=== PATIENT | male | born 1995 | race Caucasian/White ===

== ENCOUNTER 2021-09-03 13:27 | Emergency (ER) | payer OTHER ==
[2021-09-03 14:27] LABS: HEMOGLOBIN 14.5 gm/dl (14.0-17.5); RED BLOOD COUNT 5.14 M/UL (4.20-5.50); WHITE BLOOD COUNT 7.6 K/UL (4.5-11.0)
[2021-09-03 14:54] LABS: BUN/CREATININE RATIO 11 (0-10)
[2021-09-03] MEDS ORDERED: MEDROL4 MG PO (16:02)
[2021-09-03] MEDS ORDERED: HYDROCODON-ACE1 EAC4 PO ×2 (16:02→16:08)
== END 2021-09-03 16:17 | disposition home or self-care (01) ==
LOC: ER1 13:27
PROVIDERS: Emergency Medicine
DX: M54.42 Lumbago with sciatica, left side (principal); M51.27 Other intervertebral disc displacement, lumbosacral region
CPT/HCPCS: 72132; 80053; 85025; 85652; 86140; 99284; Q9967

== ENCOUNTER 2022-01-17 09:08 | Emergency (ER) | payer OTHER ==
[~2022-01-17 09:08] MED LIST: HYDROCODON-ACE1 EAC4 PO; MEDROL4 MG PO
[2022-01-17 09:46] LABS: HEMOGLOBIN 14.5 gm/dl (14.0-17.5); RED BLOOD COUNT 5.25 M/UL (4.20-5.50); WHITE BLOOD COUNT 7.6 K/UL (4.5-11.0)
[2022-01-17 10:18] LABS: BUN/CREATININE RATIO 16 (0-10)
== END 2022-01-17 11:30 | disposition home or self-care (01) ==
LOC: ER1 09:08
PROVIDERS: Nurse Practitioner
DX: R07.89 Other chest pain (principal); Z20.822 Contact with and (suspected) exposure to COVID-19; I10 Essential (primary) hypertension; E66.01 Morbid (severe) obesity due to excess calories; F17.290 Nicotine dependence, other tobacco product, uncomplicated
CPT/HCPCS: 0240U; 71045; 80053; 81001; 82550; 82553; 84484; 85025; 93005; 99285

== ENCOUNTER 2022-03-15 11:13 | Emergency (ER) | payer OTHER ==
[2022-03-15] MEDS ORDERED: IBUPROFEN600 MG PO (12:57)
== END 2022-03-15 13:15 | disposition home or self-care (01) ==
LOC: ER1 11:13
DX: S60.021A Contusion of right index finger without damage to nail, initial encounter (principal); W23.1XXA Caught, crushed, jammed, or pinched between stationary objects, initial encounter
CPT/HCPCS: 73140; 99283